=== PATIENT | male | born 1940 | race Caucasian/White ===

== ENCOUNTER 2016-07-15 01:20 | Inpatient (IN) ==
[2016-07-15] MEDS ORDERED: methylPREDNISolone 125 MG/2 ML VIAL IVP ONE (01:33)
[2016-07-15] MEDS ORDERED: Ipratropium/Albuterol Neb 3 ML IH ONE (01:33)
--- NOTE | 2016-07-15 01:34 | Emergency Department Note ---
Disposition Clinical Impression: HCAP (healthcare-associated pneumonia) Acute and chronic respiratory failure Qualifiers: Respiratory failure complication: hypoxia Qualified Code(s): J96.21 - Acute and chronic respiratory failure with hypoxia Disposition: Admitted As Inpatient Condition: Serious Time of Disposition: 03:21 SOB HPI - General Chief Complaint: ED Shortness of Breath/Dyspnea Stated Complaint: PARISH Time Seen by Provider: 07/15/16 01:20 Source: patient, EMS Mode of arrival: EMS Limitations: altered mental status Nursing Notes Reviewed: Yes Vital Signs Reviewed: Yes - History of Present Illness 76-year-old male with history of CHF, COPD, on oxygen chronically from nursing facility, apparently patient was a DNR CC, however he stated that he would like the paramedics to do everything on arrival, nursing facility did call because he was getting hypoxic with oxygen saturation of 70% in route, he was placed on BiPAP. Patient is a very limited historian therefore most history is obtained from records review and speak directly with EMS personnel. And chart review. When discussed patient does say that he would like to have BiPAP, and states that he does not want to be placed on mechanical ventilation Pt Subjective Complaint: shortness of breath, cough Onset (ago): hour(s) Context: recent illness Improves with: nothing Worsens with: lying flat Known history of: COPD, congestive heart failure - Related Data Home Medications Medication Instructions Recorded Confirmed Acetaminophen [Tylenol] 500 mg PO 899,199904/19/16 04/19/16 Acetaminophen [Tylenol] 500 mg PO Q6HR PRN 04/19/16 04/19/16 Aspirin Enteric Coated [Aspirin EC] 81 mg PO DAILY 04/19/16 04/19/16 Calcium Carbonate/Vitamin D3 2 each PO DAILY 04/19/16 04/19/16 [Calcium 600 + Vit D Tablet] Cholecalciferol (D-3) [Vitamin D] 5,000 unit PO DAILY 04/19/16 04/19/16 Citalopram [CeleXA] 20 mg PO DAILY 04/19/16 04/19/16 Clopidogrel [Plavix] 75 mg PO DAILY 04/19/16 04/19/16 Dextromethorphan HBr/Quinidine 1 each PO 899,199904/19/16 04/19/16 [Nuedexta 20-10 mg Capsule] Garlic 1,000 mg PO DAILY 04/19/16 04/19/16 GlyBURIDE 2.5 mg PO 0800 04/19/16 04/19/16 Metoprolol XL (24 HR) Succ [Toprol 50 mg PO DAILY 04/19/16 04/19/16 Xl] Multivitamin [Multi-Day Vitamins] 1 each PO QAM 04/19/16 04/19/16 Niacin (Inositol Niacinate) [Cvs 400 mg PO DAILY 04/19/16 04/19/16 Niacin Flush Free 500 mg] Petrolatum,White [Aloe [place]] 1 appl TP BID 04/19/16 04/19/16 Psyllium Husk [Daily Fiber] 1.04 gm PO TID PRN 04/19/16 04/19/16 Tolterodine LA (24 HR) [Detrol LA] 4 mg PO DAILY 04/19/16 04/19/16 Ubidecarenone [Co Q-10] 400 mg PO DAILY 04/19/16 04/19/16 l Gasseri/B Bifidum/B Longum 1 each PO BID 04/19/16 04/19/16 [[place]jia Capsule] Previous Rx's Medication Instructions Recorded Furosemide [Lasix] 20 mg PO DAILY #7 tablet 04/20/16 Allergies Allergy/AdvReac Type Severity Reaction Status Date / Time No Known Allergies Allergy Verified 04/19/16 06:41 Limitations: ROS unobtainable due to patients medical condition (Review of systems extremely limited secondary to patient's respiratdistress) Past Medical History - Past Medical History Source: old records reviewed Medical history: Reports: arthritis, COPD, diabetes, hypertension, TIA, other Psychiatric history: Reports: depression - Social History Smoking Status: Unknown if ever smoked Smokeless Tobacco Status: No Alcohol use: Reports: none Drug use: Reports: none Physical Exam - General Limitations: altered mental status General appearance: in distress (There is moderate to severe respiratory distress), cachectic - ENT ENT exam: normal exam, normal oropharynx - Neck Neck exam: Present: normal inspection, full ROM - Chest Chest inspection: Present: normal inspection, symmetric chest wall rise - Respiratory Respiratory exam: Present: respiratory distress (Severe), wheezes, accessory muscle use, prolonged expiratory phase, other - Cardiovascular Cardiovascular exam: Present: normal rhythm, tachycardia ( Basilar breath sounds ) - Abdominal Exam Abdominal exam: Present: soft, Non-Tender - Extremities Exam Extremities exam: Present: normal inspection, full ROM - Neurological Exam Neurological exam: Present: alert, CN II-XII intact. Absent: oriented X3 ( Oriented to self), motor sensory deficit - Skin Skin exam: Present: warm (Poor skin turgor) Course Course Narrative: 76-year-old male with respiratory distress, versus DNR CC and paperwork, states that he wants us to place him on BiPAP, we will do basic lab work, and reassess - Reevaluation(s) Reevaluation #1: After multiple attempts trying to contact Dr. Acevedo the patient's daughter, and Dr. Rod, the patient's son-in-law, we were unable to do so, his lab work is remarkable for a elevated troponin that appears to be demand ischemia, he has a possible lung infiltrate therefore we will place him on H Antibiotics, though he technically meet sepsis criteria we feel that he is clinically very volume overloaded therefore will not be getting fluid resuscitation. Started on bank Zosyn and Levaquin empirically, he is tolerating the BiPAP well although his mental state is still depressed, appears due to previous augmentation and the patient's wishes that he does not want have mechanical ventilation therefore the hospitalist was called's wishes were to place the patient to [facility] or ICU, place better question, the patient is currently stable Time: 03:19 Vital Signs Temperature 98.2 F 07/15/16 01:25 Pulse Rate 112 07/15/16 01:25 Respiratory Rate 30 07/15/16 01:25 Blood Pressure 124/80 07/15/16 01:25 O2 Sat by Pulse Oximetry 93 L 07/15/16 01:25 Temperature 98.2 F 07/15/16 01:25 Pulse Rate 102 07/15/16 03:09 Respiratory Rate 23 07/15/16 03:09 Blood Pressure 125/77 07/15/16 03:09 O2 Sat by Pulse Oximetry 95 07/15/16 03:09 Oxygen Delivery Oxygen Delivery Bipap Shortness of Breath/Dyspnea - MDM Narrative Medical decision making narrative: 76-year-old male with acute respiratory distress, acute on chronic respiratory failure and age Pneumonia treated empirically with broad spectrum antibiotics, unable to contact next of kin history of work does state DNR CC however patient stated that he wanted everything done at this time we will try BiPAP and supportive care try to reach his power of litigation attorney as he does have an altered mental state, admitted to the hospital service, no sepsis boluses indicated given the patient's volume overload status though he technically meets Sirs criteria - Differential Diagnosis Likely: acute exacerbation of chronic obstructive airways disease, congestive heart failure - Medical Records Medical records reviewed: Yes I reviewed the patient's medical records. - Lab Data Lab results reviewed: Yes I reviewed the patient's lab results. Result diagrams: 07/15/16 02:03 07/15/16 02:03 Lab Results 07/15/16 07/15/16 07/15/16 Range/Units 02:03 02:03 02:03 WBC 21.5 H (4.3-11.1) K/mcL RBC 4.06 L (4.19-5.50) M/mcL Hgb 12.2 L (12.9-16.9) g/dL Hct 37.5 (37.5-50.1) % MCV 92.4 (83.0-100.0) fL MCH 30.0 (28.0-33.3) pg MCHC 32.5 (31.6-35.5) g/dL RDW 12.7 (11.5-14.5) % Plt Count 194 (140-400) K/mcL MPV 10.4 (9.4-12.4) fL Immature Gran % 0.6 (0-4) % Seg Neutrophils % 84.0 % Lymphocytes % 6.0 % Monocytes % 9.0 % Eosinophils % 0.1 % Basophils % 0.3 % Neutrophils # 18.1 H (1.6-8.9) K/mcL Lymphocytes # 1.3 (0.6-4.6) K/mcL Monocytes # 1.9 H (0.0-1.3) K/mcL Eosinophils # 0.0 (0.0-0.6) K/mcL Basophils # 0.1 (0.0-0.2) K/mcL Immature Plt Fraction 4.2 (1.1-6.1) % Sodium 139 (136-145) mEq/L Potassium 4.0 (3.5-4.5) mEq/L Chloride 108 (98-109) mEq/L Carbon Dioxide 16 L (19-29) mEq/L BUN 29 H (8-26) mg/dL Creatinine 1.81 H (0.72-1.25) mg/dL Est GFR ( Amer) 44 L (> 60) Est GFR (Non-Af Amer) 37 L (> 60) BUN/Creatinine Ratio 16 (6-26) Glucose 373 H (70-99) mg/dL Calculated Osmolality 309 H (280-300) Calcium 9.3 (8.6-10.8) mg/dL Troponin I 0.35 H* (0-0.03) ng/mL B-Natriuretic Peptide (0-100) pg/mL 07/15/16 Range/Units 02:03 WBC (4.3-11.1) K/mcL RBC (4.19-5.50) M/mcL Hgb (12.9-16.9) g/dL Hct (37.5-50.1) % MCV (83.0-100.0) fL MCH (28.0-33.3) pg MCHC (31.6-35.5) g/dL RDW (11.5-14.5) % Plt Count (140-400) K/mcL MPV (9.4-12.4) fL Immature Gran % (0-4) % Seg Neutrophils % % Lymphocytes % % Monocytes % % Eosinophils % % Basophils % % Neutrophils # (1.6-8.9) K/mcL Lymphocytes # (0.6-4.6) K/mcL Monocytes # (0.0-1.3) K/mcL Eosinophils # (0.0-0.6) K/mcL Basophils # (0.0-0.2) K/mcL Immature Plt Fraction (1.1-6.1) % Sodium (136-145) mEq/L Potassium (3.5-4.5) mEq/L Chloride (98-109) mEq/L Carbon Dioxide (19-29) mEq/L BUN (8-26) mg/dL Creatinine (0.72-1.25) mg/dL Est GFR ( Amer) (> 60) Est GFR (Non-Af Amer) (> 60) BUN/Creatinine Ratio (6-26) Glucose (70-99) mg/dL Calculated Osmolality (280-300) Calcium (8.6-10.8) mg/dL Troponin I (0-0.03) ng/mL B-Natriuretic Peptide 504 H (0-100) pg/mL - Radiology Data Radiology results reviewed: Yes I reviewed the patient's radiology results. Chest X-Ray 07/15/16 01:33 IMPRESSION: Airspace disease could represent pneumonia or asymmetric edema. D/ / Gonsalo Harper MD / Gonsalo Harper MD Interpreting Provider: Gonsalo Harper MD - EKG Data EKG attestation: Yes I reviewed and interpreted this EKG. EKG shows normal: Reports: sinus rhythm Rate: Reports: tachycardia Rhythm: Reports: NSR (ventricular rate 110 VA 131 QRS 149 QTc 478 as she depressions in V4 through V6 similar to previous EKGs) Interpretation: Reports: nonspecific ST-T wave changes Critical Care Time Critical Care Time: Yes Total Critical Care Time: 40 Attestation: Critical care performed: Time is exclusive of separately billable procedures. Time includes: direct patient care, patient reassessment, coordination of patient care, interpretation of data (laboratory data, radiology data, and respiratory data), review of patient's medical records, medical consultation and documentation of patient care. Procedures included in critical care time: Procedures excluded from critical care time: Attestation Statement - Attestation Attestation: I, Keith Henriquez MD, personally performed a history and physical exam of the patient and discussed their management with the resident. I reviewed the resident's note and agree with the documented findings, medical decision making , and plan of care. 76-year-old male presents to the emergency department by ambulance from a local halfway for respiratory distress. History of CHF. EMS reports on their arrival his O2 sat was 71% on oxygen nasal cannula. He received beat on nebulizers in route to the hospital. He also received Cipro Medrol 125 mg IV and Lasix 40 mg IV. He was placed on CPAP. On arrival here his breathing has improved and his oxygen saturation is 94% on the CPAP. Patient is reportedly DNR comfort care but EMS reports that he revoked this and stated he wanted everything done. Patient does not want to be intubated. On examination patient is a well-developed elderly male in moderate respiratory distress. Breath sounds are decreased bilaterally with coarse bilateral rales and a few scattered wheezes. Heart regular with a mild tachycardia. Abdomen soft with normal bowel sounds. Labs reviewed. WBC 21.5 with 84% segs. Troponin 0.35. BNP 504. Chest x-ray shows right upper lobe and bibasilar airspace disease which could represent pneumonia or asymmetric edema. EKG shows a sinus tachycardia with a heart rate of 110. Intraventricular conduction delay. Lateral ST segment depression. The hospitalist, Dr. Steward, was consulted and accepted admission of the patient.
[2016-07-15 02:10] LABS: Basophils # 0.1 K/mcL (0.0-0.2); Basophils % 0.3 %; Eosinophils % 0.1 %; Hematocrit 37.5 % (37.5-50.1); Hemoglobin 12.2 g/dL (12.9-16.9); Immature Granulocytes % 0.6 % (0-4); Immature Platelets 4.2 % (1.1-6.1); Lymphocytes # 1.3 K/mcL (0.6-4.6); Mean Corpuscular HGB Conc 32.5 g/dL (31.6-35.5); Mean Corpuscular Volume 92.4 fL (83.0-100.0); Mean Platelet Volume 10.4 fL (9.4-12.4); Monocytes # 1.9 K/mcL (0.0-1.3); Neutrophils # 18.1 K/mcL (1.6-8.9); Platelet Count 194 K/mcL (140-400); Red Blood Count 4.06 M/mcL (4.19-5.50); Red Cell Distribution Width 12.7 % (11.5-14.5)
[2016-07-15 02:24] LABS: Calcium 9.3 mg/dL (8.6-10.8)
[2016-07-15] MEDS ORDERED: Piperacillin/Tazobactam 4.5 GM in D5% in Water (Mini-Bag+) 100 ML IVPB ONE (03:11)
[2016-07-15] MEDS ORDERED: Levofloxacin 750 MG/150 ML 750 MG/150 ML BAG IVPB ONE (03:11)
[2016-07-15] MEDS ORDERED: Vancomycin 1,000 MG in D5% in Water 250 ML IVPB ONE (03:11)
--- NOTE | 2016-07-15 03:34 | Internal Med History&Physical ---
Date of Encounter: 07/15/16 Time of Encounter: 03:15 Assessment and Plan (1) Pneumonia Current visit: Yes Status: Suspected Admit inpatient. Concern for bilateral pneumonia and as patient is a retirement patient concerning for healthcare associated pneumonia with possible MRSA. We will treat with IV antibiotics. Follow blood cultures. Sputum for culture. Qualifiers: Pneumonia type: due to methicillin-resistant Staphylococcus aureus (MRSA) Laterality: bilateral Lung location: lower lobe of lung Qualified Code(s): J15.212 - Pneumonia due to Methicillin resistant Staphylococcus aureus (2) Acute exacerbation of chronic obstructive pulmonary disease Current visit: Yes Status: Acute We will treat with nebulizer treatments, antibiotics and IV steroids. O2 supplementation. BiPAP use as needed. (3) Chronic congestive heart failure Current visit: Yes Status: Chronic Patient's x-ray findings could also be related to congestive heart failure. However his beta natruretic peptide level is lower than before. For now just continue home medications. Continue O2 supplementation. We will hold off on intravenous diuretics at this time. Qualifiers: Congestive heart failure type: systolic Qualified Code(s): I50.22 - Chronic systolic (congestive) heart failure (4) Acute and chronic respiratory failure Current visit: Yes Status: Acute Due to healthcare associated pneumonia and COPD exacerbation. BiPAP and O2 supplementation. High risk for complications Qualifiers: Respiratory failure complication: hypoxia Qualified Code(s): J96.21 - Acute and chronic respiratory failure with hypoxia (5) HCAP (healthcare-associated pneumonia) Current visit: Yes Status: Acute (6) HTN (hypertension) Current visit: Yes Status: Chronic Currently well controlled. Continue to monitor blood pressure Qualifiers: Hypertension type: essential hypertension Qualified Code(s): I10 - Essential (primary) hypertension (7) Elevated troponin Current visit: Yes Status: Acute Patient is to troponin likely due to demand ischemia and hypoxia. Will trend troponins. Does not complain of any chest pain. Cardiac monitoring. EKG shows sinus tachycardia with normal sinus rhythm and nonspecific ST segment changes. Internal Medicine - H&P: HPI Chief complaint: Shortness of breath Admitted From: Emergency Dept Plans for Post Hospital Care: Transfer Intermediate Facility History of present illness: Mr. Acevedo is a 76 year old male sent with a history of CHF, COPD and chronic respiratory failure on home oxygen presented to the ER from retirement with complaints of worsening shortness of breath and hypoxia today. The patient was apparently saturating at 70% on his way here and was placed on BiPAP. Initially there was some concern as to the CODE STATUS but he reportedly informed the ER that he did not want to be mechanically ventilated. Presently the patient is wearing a BiPAP mask and in respiratory distress and so is not able to provide much history. He however denies any chest pain. History has been obtained through review of ED records. Past Med Surg Social Fam HX - Past Medical History Medical history: arthritis, COPD, diabetes, hypertension, TIA, other Psychiatric history: depression - Social History Smoking Status: Unknown if ever smoked Smokeless Tobacco Status: No Alcohol use: none Drug use: none - Additional Family History Additional family history: Reviewed from previous records and found to be noncontributory at this time Internal Medicine - H&P: Meds Acetaminophen [Tylenol] 500 mg PO 899,199904/19/16 [History] Acetaminophen [Tylenol] 500 mg PO Q6HR PRN 04/19/16 [History] Aspirin Enteric Coated [Aspirin EC] 81 mg PO DAILY 04/19/16 [History] Calcium Carbonate/Vitamin D3 [Calcium 600 + Vit D Tablet] 2 each PO DAILY [History] Cholecalciferol (D-3) [Vitamin D] 5,000 unit PO DAILY 04/19/16 [History] Citalopram [CeleXA] 20 mg PO DAILY 04/19/16 [History] Clopidogrel [Plavix] 75 mg PO DAILY 04/19/16 [History] Dextromethorphan HBr/Quinidine [Nuedexta 20-10 mg Capsule] 1 each PO 899,199904/19/16 [History] Garlic 1,000 mg PO DAILY 04/19/16 [History] GlyBURIDE 2.5 mg PO 0800 04/19/16 [History] Metoprolol XL (24 HR) Succ [Toprol Xl] 50 mg PO DAILY 04/19/16 [History] Multivitamin [Multi-Day Vitamins] 1 each PO QAM 04/19/16 [History] Niacin (Inositol Niacinate) [Cvs Niacin Flush Free 500 mg] 400 mg PO DAILY 04/19 [History] Petrolatum,White [Aloe [place]] 1 appl TP BID 04/19/16 [History] Psyllium Husk [Daily Fiber] 1.04 gm PO TID PRN 04/19/16 [History] Tolterodine LA (24 HR) [Detrol LA] 4 mg PO DAILY 04/19/16 [History] Ubidecarenone [Co Q-10] 400 mg PO DAILY 04/19/16 [History] l Gasseri/B Bifidum/B Longum [[employer] Capsule] 1 each PO BID 01/25 [History] Furosemide [Lasix] 20 mg PO DAILY #7 tablet 04/20/16 [Rx] Allergies No Known Allergies Allergy (Verified 04/19/16 06:41) ROS unobtainable: other (Patient currently in respiratory distress and wearing BiPAP mask) All Systems PM: A 10-system review of systems was performed and is negative for pertinent findings except as documented above in the HPI. Review of systems: Not able to obtain accurately due to patient's condition. - Constitutional Constitutional: malaise, no chills, no fever(s), no night sweats - EENT Eyes: no change in vision, no discharge, no pain, no photophobia Nose, mouth and throat: no dysphagia, no nasal discharge, no neck pain, no sore throat - Cardiovascular Cardiovascular ROS IM: no chest pain, no diaphoresis, no dyspnea, no lightheadedness, no palpitations, no syncope - Respiratory Respiratory: dyspnea - Gastrointestinal Gastrointestinal: no abdominal pain, no diarrhea, no hematemesis, no hematochezia, no melena, no nausea, no vomiting - Musculoskeletal Musculoskeletal ROS IM: no numbness, no tingling - Neurological Neurological ROS: no confusion, no convulsions, no focal weakness, no numbness, no tingling, no tremor(s) - Constitutional Vitals: Temp Pulse Resp BP Pulse Ox 98.2 F 102 23 125/77 95 07/15/16 01:25 07/15/16 03:09 07/15/16 03:09 07/15/16 03:09 07/15/16 03:09 General appearance: Present: cooperative, A&O X 1, obese, severe distress - Eye Eye exam: Present: EOMI, PERRL, conjuntiva pink, sclera anicteric - ENT Additional comments: BiPAP mask in place - Neck Neck exam general surgery: Present: supple, trachea midline. Absent: lymphadenopathy - Respiratory Respiratory exam: Present: prolonged expiratory phase, rhonchi (Bilaterally), wheezes, tachypnea. Absent: accessory muscle use, rales Additional comments: Course breath sounds audible at both bases - Cardiovascular Cardiovascular exam: Present: RRR, +S1, +S2. Absent: diastolic murmur, gallop, rubs, systolic murmur - GI/Abdominal GI/Abdominal exam: Present: normal bowel sounds, soft, no peritoneal signs. Absent: distended, tenderness - Extremities Exam Extremities exam: Present: warm, radial pulses palpable and symetrical. Absent : calf tenderness, cyanotic, pedal edema - Neurological Exam Neurological exam: Present: alert, no focal deficits. Absent: facial droop, speech deficit - Skin Skin exam: Present: dry, intact Internal Med - H&P Results - Labs CBC & Chem 7: 07/15/16 02:03 07/15/16 02:03 Labs: Short CBC 07/15/16 Range/Units 02:03 WBC 21.5 H (4.3-11.1) K/mcL Hgb 12.2 L (12.9-16.9) g/dL Hct 37.5 (37.5-50.1) % Plt Count 194 (140-400) K/mcL Neutrophils # 18.1 H (1.6-8.9) K/mcL BMP 07/15/16 02:03 Sodium 139 Potassium 4.0 Chloride 108 Carbon Dioxide 16 L BUN 29 H Creatinine 1.81 H Glucose 373 H Calcium 9.3 Cardiac Enzymes 07/15/16 Range/Units 02:03 Troponin I 0.35 H* (0-0.03) ng/mL - Impressions ITS Impressions Chest X-Ray 07/15/16 01:33 IMPRESSION: Airspace disease could represent pneumonia or asymmetric edema. D/ / Gonsalo Harper MD / Gonsalo Harper MD Interpreting Provider: Gonsalo Harper MD - Attending Attestation This document has been at least partially created by [email or web address] recognition technology by Dr. Hess. Errors in grammar, wording or other phrases may exist. If errors are found after the documentation is signed, they will be addressed individually in the addendum section of this document when appropriate.
[2016-07-15] MEDS ORDERED: Naloxone 0.4 MG/ML INJ IVP PRN (03:53)
[2016-07-15] MEDS ORDERED: Acetaminophen 325 MG TABLET PO PRN (03:53)
[2016-07-15] MEDS ORDERED: D5% in Water 1,000 ML IV PRN (04:01)
[2016-07-15] MEDS ORDERED: Dextrose Gel 15 GM PO PRN ×2 (04:01)
[2016-07-15] MEDS ORDERED: *HR* Dextrose 50 % in Water (Syg) 50 ML SYRINGE IVP PRN (04:01)
[2016-07-15] MEDS: *HR* Heparin 5,000 UNIT/ML VIAL SQ SCH ×2 (06:16→17:39)
[2016-07-15] MEDS: Piperacillin/Tazobactam 3.375 GM in D5% in Water (Mini-Bag+) 100 ML IVPB SCH ×2 (08:30→16:40)
[2016-07-15] MEDS: Aspirin Enteric Coated 81 MG Tablet PO SCH (08:37)
[2016-07-15] MEDS: Insulin LISPRO 300 UNITS/3 ML VIAL SQ SCH ×3 (08:37→17:39)
[2016-07-15] MEDS: Metoprolol XL (24 HR) Succ 50 MG TAB.ER.24H PO SCH (08:37)
[2016-07-15] MEDS: Insulin DETEMIR 100 UNIT/ML X5UNITS SQ SCH ×2 (08:37→21:41)
[2016-07-15] MEDS: Furosemide 20 MG TABLET PO SCH (08:37)
--- NOTE | 2016-07-15 10:36 | Internal Med Progress Note ---
Date of Encounter: 07/15/16 Time of Encounter: 10:33 - Assessment and plan (1) Acute exacerbation of chronic obstructive pulmonary disease Current Visit: Yes Status: Acute Assessment and plan: Likely secondary to underlying PNA Will continue IV steroid and bronchodilator support continue to monitor O2 saturation, O2 sat goal: 89-92% continue O2 supplementation as needed Bipap support as needed GI ppx due to high dose steroid therapy (2) HCAP (healthcare-associated pneumonia) Current Visit: Yes Status: Acute Assessment and plan: Continue Vancomycin and Zosyn at this time Pharmacy to dose vancomycin, monitor Vanco trough f/u blood cultures (3) Diabetes mellitus Current Visit: Yes Status: Acute Assessment and plan: Hyperglycemia noted likely secondary to steroid therapy HOld oral antihyperglycemic agents at this time started Basal insulin (0.2mg/kg) as patient is insulin naive continue high dose insulin sliding scale monitor fingerstick and blood glucose Qualifiers: Diabetes mellitus type: type 2 Diabetes mellitus complication status: with unspecified complications Diabetes mellitus snf insulin use: unspecified snf insulin use status Qualified Code(s): E11.8 - Type 2 diabetes mellitus with unspecified complications (4) Elevated troponin Current Visit: Yes Status: Acute Assessment and plan: Likely demand ischemia however given rise in TNI concern for ACS [facility] does not want any anticoagulation or cardiac involvement at this time. She would like to decide after the third TNI no chest pain reported at this time will continue home doses of Aspirin and Plavix at this time (5) Chronic congestive heart failure Current Visit: Yes Status: Chronic Assessment and plan: Not in acute exacerbation will continue home medications Qualifiers: Congestive heart failure type: systolic Qualified Code(s): I50.22 - Chronic systolic (congestive) heart failure (6) HTN (hypertension) Current Visit: Yes Status: Chronic Assessment and plan: BP within acceptable range continue home medications Qualifiers: Hypertension type: essential hypertension Qualified Code(s): I10 - Essential (primary) hypertension (7) CVA (cerebral vascular accident) Current Visit: No Status: Chronic Qualifiers: CVA mechanism: thrombosis Laterality of affected vessel: unspecified Qualified Code(s): 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 Resting comfortably in bed and currently saturating well on nasal cannula. Denies any chest pain, shortness of pain at this time. Patient's mental status at baseline is awake, alert, oriented to self and family and his mental status is currently at baseline. Noted to have elevated TNI. As per family/NOK (Daughter Dr. Edna Acevedo), she does not want patient to be anticoagulated at this time and does not want cardiology involvement at this time. Will continue to trend TNI and closely follow up with the family. - Constitutional Vitals: Temp Pulse Resp BP Pulse Ox 98.3 F 85 22 136/75 91 L 07/15/16 07:22 07/15/16 07:22 07/15/16 07:22 07/15/16 07:22 07/15/16 07:22 General appearance: Present: cooperative, A&O X 1, morbidly obese, no acute distress, obese - Head Head exam: Present: atraumatic, normocephalic - Eye Eye exam: Present: normal appearance. Absent: conjuntiva pink, sclera anicteric - Respiratory Respiratory exam: Absent: respiratory distress, wheezes (equal air entry bilaterally) - Cardiovascular Cardiovascular exam: Present: RRR, +S1, +S2 - GI/Abdominal GI/Abdominal exam: Present: distended (obese), normal bowel sounds, soft. Absent: tenderness - Extremities Exam Extremities exam: Present: warm, radial pulses palpable and symetrical. Absent : calf tenderness, pedal edema - Neurological Exam Neurological exam: Present: alert - Psychiatric Psychiatric exam: Present: normal affect, normal mood Internal Medicine: Result - Labs CBC & Chem 7: 07/15/16 02:03 07/15/16 02:03 Labs: Cardiac Enzymes 07/15/16 Range/Units 08:30 Troponin I 3.53 H* (0-0.03) ng/mL Consult Discharge Plan - Plan Referrals: NO,PCP [Primary Care Provider] -
[2016-07-15] MEDS ORDERED: methylPREDNISolone 125 MG/2 ML VIAL IVP SCH (12:00)
[2016-07-15] MEDS: methylPREDNISolone 125 MG/2 ML VIAL IVP SCH ×2 (12:34→17:39)
--- NOTE | 2016-07-15 15:53 | Palliative - Consult Note ---
Date of Encounter: 07/15/16 Time of Encounter: 15:53 - Assessment and Plan (1) Acute and chronic respiratory failure Current Visit: Yes Status: Acute Assessment and plan: The patient currently has no dyspnea. He is currently on oxygen but is not on this at home. She is on antibiotics for hospital-acquired pneumonia and will remain on these. The plan will be for discharge with IV antibiotics. Qualifiers: Respiratory failure complication: hypoxia Qualified Code(s): J96.21 - Acute and chronic respiratory failure with hypoxia (2) Goals of care, counseling/discussion Current Visit: Yes Status: Acute Assessment and plan: After discussion with the patient's daughter who is his medical power of erisa attorney she is also a physician the patient is supposed to be DNR comfort care. I have changed the order to reflect this at the request of the family the patient is DNR comfort care only. Regards to patient's goals of care it has been determined in the past that there will be no invasive workup of him from a cardiac standpoint. That reason there is no point in checking any further troponins as the family does not wish to have any further cardiac care they do not wish to have cardiac consultation because there will be no invasive cardiac care done. Since the family accepts that there will be no further cardiac care done and for furthermore understands the risks of the patient having a non-ST PR. It is completely reasonable for the patient to be released to the alf with IV antibiotics when this is possible. Discussed this both at length with the patient's daughter as already noted who is a physician, as well as the patient's primary care doctor here in the hospital. A powerglide IV will be placed tomorrow (because it could not be done this afternoon) and the patient will be discharged back to [facility] as been a long-term resident. Discussing the case with Dr. Correia the patient's daughter, [facility] can handle the IV medications and all of the auditory that needs to be done with them. Social work will follow up with them tomorrow. The plan will be for tentative discharge tomorrow. (3) Elevated troponin Current Visit: Yes Status: Acute Assessment and plan: The patient is having a non-ST PR, has refused cardiac workup in the past and they continue to refuse this as the patient's overall situation is one of decline and they do not wish to consider any invasive workup as it will not stop his overall decline. I have discussed with the patient's next of kin/ medical power of erisa attorney possibility of hospice and I recommended that she discuss hospice when he gets back over to the alf. (4) HCAP (healthcare-associated pneumonia) Current Visit: Yes Status: Acute Assessment and plan: The patient is on multiple antibiotics at this time. Plan for the patient be discharged with IV antibiotics to the alf. Palliative-CN HPI - Data of Consult Patient: new to practice Requesting Physician: Alcira Cabrera MD Primary Care Provider: PCP NO - Consult Narrative Palliative Care/Comfort Measures: Palliative care Reason for consult: Goals of care History of present illness: Mr. Acevedo is a 76 year old male Was a long time resident over [facility]. He resides there due to CVA and dementia. She was brought into the emergency department because of increasing shortness of breath and was diagnosed with pneumonia. Patient was supposed to have been a DNR CC. After discussion with the patient's family, however this seems to getting be getting changed back to the patient's best interests as determined by his family. Patient was also identified as having an elevated troponin which has trended up and is now considered to be a non-ST PR. Patient has actually no complaints of at this time he specifically denies chest pain shortness of breath nausea vomiting at all anywhere and him let alone his chest CT does have a good appetite and that his bowels are moving.. CC: Alcira Cabrera MD Shortness of breath Past Med Surg Social Fam HX - Past Medical History Medical history: arthritis, COPD, diabetes, hypertension, TIA, other Psychiatric history: depression - Social History Smoking Status: Unknown if ever smoked Smokeless Tobacco Status: No Alcohol use: none Drug use: none - Family History Mother History Unknown: Yes Medications and Allergies Acetaminophen [Tylenol] 500 mg PO BID 07/15/16 [History] Acetaminophen [Tylenol] 500 mg PO Q6HR PRN 07/15/16 [History] Aspirin Enteric Coated [Aspirin EC] 81 mg PO DAILY 07/15/16 [History] Calcium Carbonate/Vitamin D3 [Calcium 600 + Vit D Tablet] 2 tab PO DAILY [History] Calcium Polycarbophil [Fiber Laxative] 2 cap PO TID PRN 07/15/16 [History] Cholecalciferol (Vitamin D3) [Vitamin D3] 5,000 unit PO DAILY 07/15/16 [History] Citalopram Hydrobromide [Celexa] 10 mg PO DAILY 07/15/16 [History] Clopidogrel [Plavix] 75 mg PO DAILY 07/15/16 [History] Dextromethorphan HBr/Quinidine [Nuedexta 20-10 mg Capsule] 1 cap PO BID [History] Furosemide [Lasix] 20 mg PO DAILY 07/15/16 [History] Garlic [Odorless Garlic] 1,000 mg PO DAILY 07/15/16 [History] GlipiZIDE [Glucotrol Xl] 2.5 mg PO DAILY 07/15/16 [History] Lactobacillus Acidophilus [Probiotic] 1 cap PO BID 07/15/16 [History] Metoprolol XL (24 HR) Succ [Toprol XL] 50 mg PO DAILY 07/15/16 [History] Multivitamin [Multivitamins] 1 cap PO DAILY 07/15/16 [History] Niacin [Endur-Acin] 400 mg PO DAILY 07/15/16 [History] Petrolatum,White [Aloe [place]] 1 appl TP BID 07/15/16 [History] Tolterodine Tartrate [Detrol] 4 mg PO DAILY 07/15/16 [History] Ubidecarenone [Co Q-10] 400 mg PO DAILY 07/15/16 [History] Allergies No Known Allergies Allergy (Verified 04/19/16 06:41) - Constitutional Constitutional ROS PAL: no decreased appetite, no anorexia - EENT Eyes: no discharge, no pain Ears: no ear discharge, no ear pain Ears, nose, mouth, throat: no dysphagia, no epistaxis, no mouth pain, no nasal congestion - Cardiovascular Cardiovascular ROS: no chest pain, no chest pain at rest, no chest pain with activity, no dyspnea on exertion - Respiratory Respiratory: no cough, no dyspnea, no hemoptysis, no dyspnea on exertion - Gastrointestinal Gastrointestinal: no constipation, no diarrhea, no nausea, no vomiting - Genitourinary Genitourinary ROS male: no urinary frequency, no urinary hesitancy, no urinary incontinence - Musculoskeletal Musculoskeletal ROS IM: no myalgias, no neck pain - Integumentary ROS Integumentary: no skin pain, no sores - Neurological Neurological ROS: confusion, no headache(s), no syncope - Psychiatric Psychiatric general PM: confusion, no change in appetite, no homicidal ideation , no suicidal ideation - Endocrine Endocrine IM: other (Positive for diabetes) Palliative Care-Exam - Constitutional Vitals: Temp Pulse Resp BP Pulse Ox 98.3 F 73 18 146/81 93 L 07/15/16 15:32 07/15/16 15:32 07/15/16 15:32 07/15/16 15:32 07/15/16 15:32 General appearance: Present: no acute distress - Head Head Exam: Present: atraumatic - Eye Eye exam: Present: EOMI - ENT ENT exam: Present: mucous membranes moist - Neck Neck exam: Present: normal inspection - Respiratory Respiratory exam: Present: decreased breath sounds, rhonchi - Cardiovascular Cardiovascular exam: Present: RRR - GI/Abdominal Exam GI/Abdominal exam: Present: normal bowel sounds, soft. Absent: tenderness - Extremities Exam Extremities exam: Absent: pedal edema, tenderness - Neurological Exam Neurological exam: Present: alert, CN II-XII intact. Absent: oriented X3 - Psychiatric Psychiatric exam: Absent: agitated, anxious - Skin Skin exam: Present: dry, warm Internal Medicine - CN: Reslt - Labs CBC & Chem 7: 07/15/16 15:47 07/15/16 15:47 Labs: Cardiac Enzymes 07/15/16 07/15/16 Range/Units 08:30 14:45 Troponin I 3.53 H* 8.14 H* (0-0.03) ng/mL Consult Discharge Plan - Plan Referrals: NO,PCP [Primary Care Provider] - Palliative Quality Palliative Quality: Screen for Code Status: Yes, Screen for Goals of Care: Yes, Screen for Pain: Yes, If Pain Regimen Started, Initiate Bowel Regimen: NA, Screen for Nausea/Vomitting: Yes Code Status: 07/15/16 03:53 Resuscitation Status: Active [RES] Routine Comment: Resuscitation Status: [id number]
[2016-07-15 15:56] LABS: Basophils % 0.1 %; Hematocrit 34.5 % (37.5-50.1); Hemoglobin 11.3 g/dL (12.9-16.9); Immature Granulocytes % 0.9 % (0-4); Lymphocytes # 1.1 K/mcL (0.6-4.6); Lymphocytes % 7.7 %; Mean Corpuscular HGB Conc 32.8 g/dL (31.6-35.5); Mean Corpuscular Hemoglobin 29.5 pg (28.0-33.3); Mean Corpuscular Volume 90.1 fL (83.0-100.0); Mean Platelet Volume 10.3 fL (9.4-12.4); Monocytes # 0.3 K/mcL (0.0-1.3); Monocytes % 2.1 %; Neutrophils # 13.3 K/mcL (1.6-8.9); Platelet Count 155 K/mcL (140-400); Red Blood Count 3.83 M/mcL (4.19-5.50); Red Cell Distribution Width 12.5 % (11.5-14.5); Segmented Neutrophils % 89.2 %
[2016-07-15 16:06] LABS: Calcium 9.5 mg/dL (8.6-10.8); Magnesium 1.6 mg/dL (1.6-2.6); Potassium 4.2 mEq/L (3.5-4.5)
--- NOTE | 2016-07-15 17:08 | Electrocardiograph Report ---
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
[2016-07-15] MEDS ORDERED: Lidocaine -MPF 1% 5 ML AMPUL INFILT ONE (17:10)
--- NOTE | 2016-07-15 17:21 | Electrocardiograph Report ---
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
[2016-07-15] MEDS: Vancomycin 2,000 MG in D5% in Water 500 ML IVPB SCH (18:00)
[2016-07-15] MEDS ORDERED: Insulin LISPRO 300 UNITS/3 ML VIAL SQ SCH (21:00)
[2016-07-15] MEDS ORDERED: Sodium Phosphate 30 MMOL in D5% in Water 100 ML IVPB ONE (21:12)
[2016-07-15] MEDS ORDERED: Albuterol 2.5 MG/3 ML NEBULIZER IH PRN (21:16)
[2016-07-15] MEDS ORDERED: *HR* LORazepam 0.5 MG TABLET PO PRN (21:49)
[2016-07-15] MEDS: Ipratropium/Albuterol Neb 3 ML IH SCH (22:57)
[2016-07-16] MEDS: Piperacillin/Tazobactam 3.375 GM in D5% in Water (Mini-Bag+) 100 ML IVPB SCH ×3 (01:51→17:10)
[2016-07-16] MEDS: methylPREDNISolone 125 MG/2 ML VIAL IVP SCH ×3 (01:53→18:59)
[2016-07-16] MEDS ORDERED: Vancomycin 1,750 MG in D5% in Water 250 ML IVPB SCH (04:00)
[2016-07-16] MEDS: Ipratropium/Albuterol Neb 3 ML IH SCH ×3 (05:00→16:12)
[2016-07-16] MEDS: *HR* Heparin 5,000 UNIT/ML VIAL SQ SCH ×2 (05:24→17:08)
[2016-07-16 05:58] LABS: Basophils % 0.1 %; Hematocrit 31.1 % (37.5-50.1); Hemoglobin 10.2 g/dL (12.9-16.9); Immature Granulocytes % 1.4 % (0-4); Lymphocytes # 1.2 K/mcL (0.6-4.6); Lymphocytes % 7.1 %; Mean Corpuscular HGB Conc 32.8 g/dL (31.6-35.5); Mean Corpuscular Hemoglobin 29.6 pg (28.0-33.3); Mean Corpuscular Volume 90.1 fL (83.0-100.0); Mean Platelet Volume 10.4 fL (9.4-12.4); Monocytes # 0.5 K/mcL (0.0-1.3); Monocytes % 3.1 %; Neutrophils # 14.9 K/mcL (1.6-8.9); Platelet Count 133 K/mcL (140-400); Red Blood Count 3.45 M/mcL (4.19-5.50); Red Cell Distribution Width 12.5 % (11.5-14.5); Segmented Neutrophils % 88.3 %
[2016-07-16 06:15] LABS: Calcium 8.6 mg/dL (8.6-10.8); Magnesium 1.4 mg/dL (1.6-2.6)
[2016-07-16 06:20] LABS: Phosphorous 4.4 mg/dL (2.3-4.7)
[2016-07-16] MEDS ORDERED: Magnesium Sulfate 2 GM in D5% in Water 100 ML IVPB ONE (07:52)
[2016-07-16] MEDS: Insulin LISPRO 300 UNITS/3 ML VIAL SQ SCH ×3 (08:56→17:10)
[2016-07-16] MEDS: Aspirin Enteric Coated 81 MG Tablet PO SCH (08:56)
[2016-07-16] MEDS: Metoprolol XL (24 HR) Succ 50 MG TAB.ER.24H PO SCH (08:56)
[2016-07-16] MEDS: Furosemide 20 MG TABLET PO SCH (08:56)
[2016-07-16] MEDS: Insulin DETEMIR 100 UNIT/ML X5UNITS SQ SCH (08:56)
[2016-07-16] MEDS ORDERED: Lactobacillus 1 EACH CAP.SPRINK PO SCH (09:00)
--- NOTE | 2016-07-16 10:32 | Palliative Progress Note ---
Date of Encounter: 07/16/16 Time of Encounter: 09:20 - Assessment and plan (1) Acute and chronic respiratory failure Current Visit: Yes Status: Acute Assessment and plan: The patient looks much better and person than on paper, not seem to be in any distress whatsoever. After discussion with his daughter yesterday and when necessary who is a physician) she will be returned back to [facility] to finish out his antibiotics. No further cardiac workup. Patient's daughter as already noted is a physician understands the risks benefits of this decision. Qualifiers: Respiratory failure complication: hypoxia Qualified Code(s): J96.21 - Acute and chronic respiratory failure with hypoxia (2) Goals of care, counseling/discussion Current Visit: Yes Status: Acute Assessment and plan: The patient was supposed to have been comfort care originally, this has been changed to comfort care per family request all of care is for [facility] his [facility] there. Since family is populated with physicians, his medical power of prosecuting attorney is a physician or stands the benefit of no further workup for cardiac disease. As she pointed out his overall mental decline any further cardiac care would be futile. I agree with this sentiment. (3) Elevated troponin Current Visit: Yes Status: Acute Assessment and plan: This represents a non-STEMI, this will not be dealt with further per family request. This is consistent with prior requests. (4) HCAP (healthcare-associated pneumonia) Current Visit: Yes Status: Acute Assessment and plan: The patient's white blood cell count is trending back up, however she will go out on IV antibiotics. Will be managed by the patient's primary care doctor and the [facility]. - Time Spent With Patient Total time spent is greater than 50% in coordination of care (as documented) at patient's floor/unit and/or counseling patient: - Subjective Interval history: Patient has no complaint of this morning. - Constitutional Vitals: Abnormal lab results WBC 16.8 K/mcL (4.3-11.1) H 07/16/16 05:37 RBC 3.45 M/mcL (4.19-5.50) L 07/16/16 05:37 Hgb 10.2 g/dL (12.9-16.9) L 07/16/16 05:37 Hct 31.1 % (37.5-50.1) L 07/16/16 05:37 Plt Count 133 K/mcL (140-400) L 07/16/16 05:37 Neutrophils # 14.9 K/mcL (1.6-8.9) H 07/16/16 05:37 BUN 39 mg/dL (8-26) H 07/16/16 05:37 Creatinine 1.63 mg/dL (0.72-1.25) H 07/16/16 05:37 Est GFR ( Amer) 50 (> 60) L 07/16/16 05:37 Est GFR (Non-Af Amer) 41 (> 60) L 07/16/16 05:37 Glucose 246 mg/dL (70-99) H 07/16/16 05:37 POC Glucose 262 (58-89) H 07/15/16 21:03 Calculated Osmolality 306 (280-300) H 07/16/16 05:37 Magnesium 1.4 mg/dL (1.6-2.6) L 07/16/16 05:37 Troponin I 8.14 ng/mL (0-0.03) H* 07/15/16 14:45 B-Natriuretic Peptide 504 pg/mL (0-100) H 07/15/16 02:03 General appearance: Present: no acute distress - Head Head exam: Present: atraumatic, normal inspection - Eye Eye exam: Present: normal appearance - ENT ENT exam: Present: mucous membranes moist - Respiratory Respiratory exam: Present: decreased breath sounds (Slightly) - Cardiovascular Cardiovascular exam: Present: RRR - GI/Abdominal GI/Abdominal exam: Present: normal bowel sounds, soft. Absent: tenderness - Extremities Exam Extremities exam: Present: normal inspection. Absent: tenderness - Neurological Exam Neurological exam: Present: alert. Absent: oriented X3 - Psychiatric Psychiatric exam: Absent: agitated, anxious - Skin Skin exam: Present: dry, warm Palliative Quality Palliative Quality: Screen for Code Status: Yes, Screen for Goals of Care: Yes, Screen for Pain: Yes, If Pain Regimen Started, Initiate Bowel Regimen: NA, Screen for Nausea/Vomitting: Yes Code Status: 07/15/16 03:53 Resuscitation Status: Active [RES] Routine Comment: Resuscitation Status: [id number]-[id number] Resuscitation Status: Active [RES] Routine Comment: Resuscitation Status: DNR-Comfort Care - Labs CBC & Chem 7: 07/16/16 05:37 07/16/16 05:37 Labs: Laboratory Results - last 24 hr 07/15/16 07/15/16 07/15/16 05:39 05:41 07:25 WBC RBC Hgb Hct MCV MCH MCHC RDW Plt Count MPV Immature Gran % Seg Neutrophils % Lymphocytes % Monocytes % Eosinophils % Basophils % Neutrophils # Lymphocytes # Monocytes # Eosinophils # Basophils # Sodium Potassium Chloride Carbon Dioxide BUN Creatinine Est GFR ( Amer) Est GFR (Non-Af Amer) BUN/Creatinine Ratio Glucose POC Glucose 415 H* 432 H* 385 H Calculated Osmolality Calcium Phosphorus Magnesium Troponin I 07/15/16 07/15/16 07/15/16 11:43 14:45 15:35 WBC RBC Hgb Hct MCV MCH MCHC RDW Plt Count MPV Immature Gran % Seg Neutrophils % Lymphocytes % Monocytes % Eosinophils % Basophils % Neutrophils # Lymphocytes # Monocytes # Eosinophils # Basophils # Sodium Potassium Chloride Carbon Dioxide BUN Creatinine Est GFR ( Amer) Est GFR (Non-Af Amer) BUN/Creatinine Ratio Glucose POC Glucose 390 H 243 H Calculated Osmolality Calcium Phosphorus Magnesium Troponin I 8.14 H* 07/15/16 07/15/16 07/15/16 15:47 15:47 21:03 WBC 14.9 H RBC 3.83 L Hgb 11.3 L Hct 34.5 L MCV 90.1 MCH 29.5 MCHC 32.8 RDW 12.5 Plt Count 155 MPV 10.3 Immature Gran % 0.9 Seg Neutrophils % 89.2 Lymphocytes % 7.7 Monocytes % 2.1 Eosinophils % 0.0 Basophils % 0.1 Neutrophils # 13.3 H Lymphocytes # 1.1 Monocytes # 0.3 Eosinophils # 0.0 Basophils # 0.0 Sodium 138 Potassium 4.2 Chloride 105 Carbon Dioxide 22 BUN 35 H Creatinine 1.73 H Est GFR ( Amer) 47 L Est GFR (Non-Af Amer) 38 L BUN/Creatinine Ratio 20 Glucose 249 H POC Glucose 262 H Calculated Osmolality 302 H Calcium 9.5 Phosphorus 2.0 L Magnesium 1.6 Troponin I 07/16/16 07/16/16 05:37 05:37 WBC 16.8 H RBC 3.45 L Hgb 10.2 L Hct 31.1 L MCV 90.1 MCH 29.6 MCHC 32.8 RDW 12.5 Plt Count 133 L MPV 10.4 Immature Gran % 1.4 Seg Neutrophils % 88.3 Lymphocytes % 7.1 Monocytes % 3.1 Eosinophils % 0.0 Basophils % 0.1 Neutrophils # 14.9 H Lymphocytes # 1.2 Monocytes # 0.5 Eosinophils # 0.0 Basophils # 0.0 Sodium 139 Potassium 4.0 Chloride 106 Carbon Dioxide 23 BUN 39 H Creatinine 1.63 H Est GFR ( Amer) 50 L Est GFR (Non-Af Amer) 41 L BUN/Creatinine Ratio 24 Glucose 246 H POC Glucose Calculated Osmolality 306 H Calcium 8.6 Phosphorus 4.4 D Magnesium 1.4 L Troponin I Consult Discharge Plan - Plan Referrals: NO,PCP [Primary Care Provider] - (PATIENT IS FROM [facility], NO PCP APPOINTMENT NEEDED)
--- NOTE | 2016-07-16 12:25 | Discharge Summary ---
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 insulin use: unspecified alf insulin use status Qualified Code(s): E11.8 - Type 2 diabetes mellitus with unspecified complications (4) Elevated troponin Priority: Secondary Status: Acute Comments: NSTEMI Family does not want any further intervention (5) Chronic congestive heart failure Priority: Secondary Status: Chronic Qualifiers: Congestive heart failure type: systolic Qualified Code(s): I50.22 - Chronic systolic (congestive) heart failure (6) HTN (hypertension) Priority: Secondary Status: Chronic Qualifiers: Hypertension type: essential hypertension Qualified Code(s): I10 - Essential (primary) hypertension (7) CVA (cerebral vascular accident) Priority: Secondary Status: Chronic Qualifiers: CVA mechanism: thrombosis Laterality of affected vessel: unspecified Qualified Code(s): 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 (8) DVT prophylaxis Priority: Secondary Status: Acute - Discharge Medications Prescriptions: Taeulqhydajm-Kbxa-Biphcxzc,Iso [Zosyn 3.375 gm/50 ml Galaxy] 3.375 gm IV Q8H # 17 frooleg PredniSONE 40 mg PO DAILY #7 tablet Vancomycin/0.9 % Sod Chloride [Vanco 1 Gram/250 ml-0.9% NaCl] 1 gm IV Q12H #10 plast..bag Home Medications: Acetaminophen [Tylenol] 500 mg PO BID 07/15/16 [History] Acetaminophen [Tylenol] 500 mg PO Q6HR PRN 07/15/16 [History] Aspirin Enteric Coated [Aspirin EC] 81 mg PO DAILY 07/15/16 [History] Calcium Carbonate/Vitamin D3 [Calcium 600 + Vit D Tablet] 2 tab PO DAILY [History] Calcium Polycarbophil [Fiber Laxative] 2 cap PO TID PRN 07/15/16 [History] Cholecalciferol (Vitamin D3) [Vitamin D3] 5,000 unit PO DAILY 07/15/16 [History] Citalopram Hydrobromide [Celexa] 10 mg PO DAILY 07/15/16 [History] Clopidogrel [Plavix] 75 mg PO DAILY 07/15/16 [History] Dextromethorphan HBr/Quinidine [Nuedexta 20-10 mg Capsule] 1 cap PO BID [History] Furosemide [Lasix] 20 mg PO DAILY 07/15/16 [History] Garlic [Odorless Garlic] 1,000 mg PO DAILY 07/15/16 [History] GlipiZIDE [Glucotrol Xl] 2.5 mg PO DAILY 07/15/16 [History] Lactobacillus Acidophilus [Probiotic] 1 cap PO BID 07/15/16 [History] Metoprolol XL (24 HR) Succ [Toprol Xl] 50 mg PO DAILY 07/15/16 [History] Multivitamin [Multivitamins] 1 cap PO DAILY 07/15/16 [History] Niacin [Endur-Acin] 400 mg PO DAILY 07/15/16 [History] Petrolatum,White [Aloe [place]] 1 appl TP BID 07/15/16 [History] Tolterodine Tartrate [Detrol] 4 mg PO DAILY 07/15/16 [History] Ubidecarenone [Co Q-10] 400 mg PO DAILY 07/15/16 [History] Xwzdjrxuqfqt-Kmhi-Nelhzjba,Iso [Zosyn 3.375 gm/50 ml Galaxy] 3.375 gm IV Q8H # 17 froz.piggy 07/16/16 [Rx] PredniSONE 40 mg PO DAILY #7 tablet 07/16/16 [Rx] Vancomycin/0.9 % Sod Chloride [Vanco 1 Gram/250 ml-0.9% NaCl] 1 gm IV Q12H #10 plast..bag 07/16/16 [Rx] Allergies/Adverse Reactions: Allergies No Known Allergies Allergy (Verified 04/19/16 06:41) Procedures/tests Complete & Pending: Procedures Performed prior 72 hours Category Date Time Status ECG 12 lead ECG [ECG] Routine Y 07/15/16 11:04 Completed Date of admission: 07/15/16 03:41 Primary care physician: PCP NO Consults: 07/15/16 07:13 Consult to Nutrition [CONS] Routine Comment: Consulting Provider: NUTRITION Reason for Dietary Consult: MST Score 07/15/16 14:49 Consult to Palliative Care [CONS] Stat Comment: Consulting Provider: Palliative Care Adelina 07/15/16 17:11 Consult to Invasive Line Access Team [CONS] Routine Reason for Consult: Picc Line Insertion Line Type: EPIV PICC line indications: long term care pharmacist Med/Antibiotic Time Notified: 17:11 Call Completed: Yes 07/15/16 21:16 Consult to Nurse Navigator [CONS] Routine Comment: Discharging clinician: Alcira Cabrera Anticipated date of discharge: 07/16/16 - Patient Status Disposition: Transfer SNF Condition: Good Functional capacity at discharge: uses cane/walker Overall status at discharge: patient is back to baseline - Discharge Instructions Follow Up With: NO,PCP [Non-Partnered Physician] - (PATIENT IS FROM [facility], NO PCP APPOINTMENT NEEDED) Additional Instructions: Please follow up with your primary care physician with five days after your discharge from the hospital. Please continue IV antibiotics as prescribed for a total of 7 days. Please take Prednisone as prescribed. Please continue all your home medications as prescribed by your primary care physician. - Diet and Activity Activity: resume usual activities as tolerated, wear oxygen at all times Diet: diabetic diet, low salt diet Hospital course: Mr. Acevedo is a 76 year old male history of CHF, COPD and chronic respiratory failure on home oxygen presented to the ER from assisted with complaints of worsening shortness of breath and hypoxia and was admitted for COPD exacerbation secondary to HCAP. Patient was also found to have elevated TNI however as per patient's POA (Edna Acevedo), she does not want any cardiac work up, and does not want any treatment for the NSTEMI. Palliative care was consulted and as per POA's wishes, patient was made DNR-Comfort care.At this time POA does not want the patient to be hospitalized and demands that the patient be discharged to [place] with home antibiotics. She states that the patient' s PCP will follow up with the patient. At this time, patient is breathing comfortably and back to his baseline. He has home oxygen. He is saturating well on nasal cannula. He will be discharged to [place] with ABX for a total of 7 days and oral Prednisone. - Time Spent with Patient Total time spent providing and/or coordinating discharge services: Greater than 30 minutes - Constitutional Vitals: Temp Pulse Resp BP Pulse Ox 98.2 F 75 20 135/73 95 07/16/16 11:32 07/16/16 11:32 07/16/16 11:32 07/16/16 11:32 07/16/16 11:32 General appearance: Present: cooperative, A&O X 1, morbidly obese, no acute distress, obese - Head Head exam: Present: atraumatic, normocephalic - Eye Eye exam: Present: conjuntiva pink, sclera anicteric - Respiratory Respiratory exam: Absent: respiratory distress, wheezes (equal air entry bilaterally) - Cardiovascular Cardiovascular exam: Present: RRR, +S1, +S2 - GI/Abdominal GI/Abdominal exam: Present: normal bowel sounds, soft. Absent: tenderness - Extremities Exam Extremities exam: Present: pedal edema, warm, radial pulses palpable and symetrical. Absent: calf tenderness - Neurological Exam Neurological exam: Present: alert - Psychiatric Psychiatric exam: Present: normal affect, normal mood
--- NOTE | 2016-07-16 12:41 | Physician Discharge Referral ---
[facility] Referral Info Transfer To: [place] Provider in Charge after Transfer: PCP - Diagnosis (1) Acute exacerbation of chronic obstructive pulmonary disease Priority: Primary Status: Acute (2) HCAP (healthcare-associated pneumonia) Priority: Primary Status: Acute (3) Diabetes mellitus Priority: Secondary Status: Acute (4) Elevated troponin Priority: Secondary Status: Acute (5) Chronic congestive heart failure Priority: Secondary Status: Chronic (6) HTN (hypertension) Priority: Secondary Status: Chronic (7) CVA (cerebral vascular accident) Priority: Secondary Status: Chronic (8) DVT prophylaxis Status: Acute - Transfer Medications Prescriptions: Shxprkxdnmyf-Fvpq-Kemylfpo,Iso [Zosyn 3.375 gm/50 ml Galaxy] 3.375 gm IV Q8H # 17 froz.piggy PredniSONE 40 mg PO DAILY #7 tablet Vancomycin/0.9 % Sod Chloride [Vanco 1 Gram/250 ml-0.9% NaCl] 1 gm IV Q12H #10 plast..bag Home Medications: Acetaminophen [Tylenol] 500 mg PO BID 07/15/16 [History] Acetaminophen [Tylenol] 500 mg PO Q6HR PRN 07/15/16 [History] Aspirin Enteric Coated [Aspirin EC] 81 mg PO DAILY 07/15/16 [History] Calcium Carbonate/Vitamin D3 [Calcium 600 + Vit D Tablet] 2 tab PO DAILY [History] Calcium Polycarbophil [Fiber Laxative] 2 cap PO TID PRN 07/15/16 [History] Cholecalciferol (Vitamin D3) [Vitamin D3] 5,000 unit PO DAILY 07/15/16 [History] Citalopram Hydrobromide [Celexa] 10 mg PO DAILY 07/15/16 [History] Clopidogrel [Plavix] 75 mg PO DAILY 07/15/16 [History] Dextromethorphan HBr/Quinidine [Nuedexta 20-10 mg Capsule] 1 cap PO BID [History] Furosemide [Lasix] 20 mg PO DAILY 07/15/16 [History] Garlic [Odorless Garlic] 1,000 mg PO DAILY 07/15/16 [History] GlipiZIDE [Glucotrol Xl] 2.5 mg PO DAILY 07/15/16 [History] Lactobacillus Acidophilus [Probiotic] 1 cap PO BID 07/15/16 [History] Metoprolol XL (24 HR) Succ [Toprol Xl] 50 mg PO DAILY 07/15/16 [History] Multivitamin [Multivitamins] 1 cap PO DAILY 07/15/16 [History] Niacin [Endur-Acin] 400 mg PO DAILY 07/15/16 [History] Petrolatum,White [Aloe Freedom] 1 appl TP BID 07/15/16 [History] Tolterodine Tartrate [Detrol] 4 mg PO DAILY 07/15/16 [History] Ubidecarenone [Co Q-10] 400 mg PO DAILY 07/15/16 [History] Qeavpxuyenyo-Mzed-Aezgdfop,Iso [Zosyn 3.375 gm/50 ml Galaxy] 3.375 gm IV Q8H # 17 froz.piggy 07/16/16 [Rx] PredniSONE 40 mg PO DAILY #7 tablet 07/16/16 [Rx] Vancomycin/0.9 % Sod Chloride [Vanco 1 Gram/250 ml-0.9% NaCl] 1 gm IV Q12H #10 plast..bag 07/16/16 [Rx] Allergies/Adverse Reactions: Allergies No Known Allergies Allergy (Verified 04/19/16 06:41) - Respiratory Orders Oxygen / L per min Smoking Cessation: Smoking cessation has been advised. For more information, call the [place] Tobacco Quit Line at 1-231-TMEO-NOW. - Treatments List/Other: Please follow up with your primary care physician with five days after your discharge from the hospital. Please continue IV antibiotics as prescribed for a total of 7 days. Please take Prednisone as prescribed. Please continue all your home medications as prescribed by your primary care physician. CERTIFICATION: I certify that the transfer of the above named patient to an Extended Care Facility is necessary for the continuing treatment of the diagnosis listed. The above information is true and accurate reflection of patient's current condition. Confidential - Redisclosure prohibited without a patient's written consent.
[2016-07-16] MEDS: Vancomycin 2,000 MG in D5% in Water 500 ML IVPB SCH (14:34)
[2016-07-16 15:47] VITALS: BP 143/72
[2016-07-16] MEDS ORDERED: Pantoprazole 40 MG VIAL IVP SCH (18:00)
[2016-07-16] MEDS ORDERED: Aminoglycoside Consult 1 EACH MC ONE (19:11)
[2016-07-17] MEDS ORDERED: Levofloxacin 750 MG/150 ML 750 MG/150 ML BAG IVPB SCH (04:00)
== END 2016-07-16 19:12 | DRG 280 ==
LOC: EMEROO 01:20 → 2NNU 03:41
PROVIDERS: ADMIT Internal Medicine; ATTEND Internal Medicine